=== PATIENT | male | born 1995 | race Caucasian/White ===

== ENCOUNTER 2019-01-31 20:31 | Emergency (ER) | payer OTHER ==
[~2019-01-31] VITALS: Ht 175.3 cm; Wt 100.0 kg
--- NOTE | 2019-01-31 21:17 | REP ---
Clinical: Trauma. Technique: AP, lateral, bilateral oblique views left hand . Findings: The osseous structures and joint spaces are intact and normal. There is no evidence for acute fracture or dislocation. Surrounding soft tissues are unremarkable. No subcutaneous emphysema or radiodense foreign body. Impression: Normal left hand series. No acute fracture or dislocation. Electronically Signed by Elliott Bosch MD 01/31/2019 09:08 P
[2019-01-31] MEDS ORDERED: IBUPROFEN 800 MG TAB PO ONE (23:15)
[2019-01-31] MEDS ORDERED: CEPHALEXIN 500 MG CAP PO ONE (23:15)
[2019-01-31] MEDS ORDERED: IBUP80TA PO (23:20)
[2019-01-31] MEDS ORDERED: KEFL500C17 PO (23:20)
[2019-01-31 23:50] VITALS: BP 145/68
== END 2019-01-31 23:44 | disposition home or self-care (01) ==
LOC: M ED 20:31
DX: M79.642 Pain in left hand (principal)

== ENCOUNTER 2019-05-24 13:11 | Emergency (ER) | payer OTHER ==
[~2019-05-24] VITALS: Ht 175.3 cm; Wt 100.0 kg
[~2019-05-24 13:11] MED LIST: IBUP80TA PO; KEFL500C17 PO
[2019-05-24] MEDS ORDERED: ACET-861 PO (13:16)
--- NOTE | 2019-05-24 14:19 | REP ---
Left ankle four views: There is soft tissue edema laterally. There is no fracture or dislocation. The mortise is symmetric. Mineralization is normal. There are no calcifications or foreign bodies. Impression: Soft tissue edema laterally. No fracture. Electronically Signed by Antonio Lozano MD 05/24/2019 02:11 P
[2019-05-24 14:54] VITALS: BP 141/77
== END 2019-05-24 14:58 | disposition home or self-care (01) ==
LOC: M ED 13:11
DX: S93.401A Sprain of unspecified ligament of right ankle, initial encounter (principal); M25.471 Effusion, right ankle; X50.1XXA Overexertion from prolonged static or awkward postures, initial encounter; Y92.830 Public park as the place of occurrence of the external cause; Y93.89 Activity, other specified; Y99.9 Unspecified external cause status

== ENCOUNTER → 2020-12-24 | Outpatient (CLI) | payer SELFPAY ==
[~2020-12-24] MED LIST changes: +ACET-861 PO
== END ==
LOC: M LABSMTC 12:44
PROVIDERS: ATTEND Pediatrics
DX: Z20.828 Contact with and (suspected) exposure to other viral communicable diseases (principal)

== ENCOUNTER 2021-03-04 16:42 | Emergency (ER) | payer OTHER, SELFPAY ==
[~2021-03-04] VITALS: Ht 175.3 cm; Wt 112.8 kg
[2021-03-04] MEDS ORDERED: PRED20TA PO (17:43)
[2021-03-04 18:10] VITALS: BP 133/69
== END 2021-03-04 18:11 | disposition home or self-care (01) ==
LOC: M ED 16:42
DX: G56.02 Carpal tunnel syndrome, left upper limb (principal)

== ENCOUNTER 2022-09-16 17:21 | Emergency (ER) | payer OTHER ==
[~2022-09-16] VITALS: Ht 175.3 cm; Wt 100.0 kg
[~2022-09-16 17:21] MED LIST changes: +IBUP-1022 PO; +PRED20TA PO; +VITA1CAP25
[2022-09-16] MEDS ORDERED: NS 1,000 ML IV ONE (18:55)
[2022-09-16] MEDS ORDERED: diphenhydrAMINE 50MG/ML VIAL IV STA (18:55)
[2022-09-16] MEDS ORDERED: KETOROLAC 60MG 2ML VIAL IM ONE (18:55)
[2022-09-16] MEDS ORDERED: METOCLOPRAMIDE INJ 10MG/2ML VIAL (J2765 PER 1) IV ONE (18:55)
[2022-09-16 19:59] LABS: BASO # 0.1 10^3/uL (0.0-0.2); BASO % 1.2 % (0.0-1.0); EOS # 0.1 10^3/uL (0.0-0.5); HEMATOCRIT 38.9 % (42.0-52.0); HEMOGLOBIN 13.8 g/dl (13.5-17.5); LYMPH # 1.8 10^3/uL (1.5-5.0); LYMPH % 35.3 % (24.0-44.0); MEAN CORPUSCULAR HEMOGLOBIN 27.9 pg (27.0-33.0); MEAN CORPUSCULAR HGB CONC 35.5 g/dl (32.0-36.5); MEAN CORPUSCULAR VOLUME 78.6 fl (80.0-96.0); MONO # 0.5 10^3/uL (0.0-0.8); MONO % 9.8 % (2.0-8.0); NEUTROPHILS # 2.6 10^3/uL (1.5-8.5); NEUTROPHILS % 51.3 % (36.0-66.0); PLATELET COUNT, AUTOMATED 155 10^3/uL (150-450); RED BLOOD COUNT 4.95 10^6/uL (4.30-6.10)
[2022-09-16 20:25] LABS: ERYTHROCYTE SEDIMENTATION RATE 19 mm/hr (0-15)
[2022-09-16 20:28] LABS: BLOOD UREA NITROGEN 17 MG/DL (9-23); CALCIUM LEVEL 9.8 MG/DL (8.5-10.1); CARBON DIOXIDE LEVEL 24 MMOL/L (20-31); CHLORIDE LEVEL 105 MMOL/L (98-107); CREATININE FOR GFR 1.01 MG/DL (0.70-1.30); GLOMERULAR FILTRATION RATE > 60.0 (>60); GLUCOSE, FASTING 91 MG/DL (60-100); SODIUM LEVEL 140 MMOL/L (136-145)
[2022-09-16 21:03] LABS: RSV AMPLIFICATION NEGATIVE (NEGATIVE)
[2022-09-16] MEDS ORDERED: SUMA25TA3 PO (21:45)
[2022-09-16 22:07] VITALS: BP 130/68
== END 2022-09-16 22:09 | disposition home or self-care (01) ==
LOC: M ED 17:21
DX: R51.9 Headache, unspecified (principal); Z79.899 Other long term (current) drug therapy
CPT/HCPCS: 70450; 80048; 83735; 85025; 85652; 87631; 96361; 96372; 96374; 96375; 99284; J1200; J1885; J2765

== ENCOUNTER 2022-09-23 11:04 | Emergency (ER) | payer OTHER ==
[~2022-09-23] VITALS: Ht 175.3 cm; Wt 104.5 kg
[~2022-09-23 11:04] MED LIST changes: +SUMA25TA3 PO
[2022-09-23] MEDS ORDERED: ONDANSETRON 4MG 2ML VIAL IV ONE (12:35)
[2022-09-23] MEDS ORDERED: ACETAMINOPHEN 500 MG TAB PO ONE (12:35)
[2022-09-23] MEDS ORDERED: NS 1,000 ML IV ONE (12:35)
[2022-09-23 13:38] LABS: BASO # 0.1 10^3/uL (0.0-0.2); BASO % 1.2 % (0.0-1.0); EOS % 0.7 % (0.0-3.0); HEMATOCRIT 35.8 % (42.0-52.0); HEMOGLOBIN 12.4 g/dl (13.5-17.5); LYMPH # 1.8 10^3/uL (1.5-5.0); LYMPH % 43.7 % (24.0-44.0); MEAN CORPUSCULAR HEMOGLOBIN 27.4 pg (27.0-33.0); MEAN CORPUSCULAR HGB CONC 34.6 g/dl (32.0-36.5); MEAN CORPUSCULAR VOLUME 79.2 fl (80.0-96.0); MONO # 0.3 10^3/uL (0.0-0.8); MONO % 6.9 % (2.0-8.0); PLATELET COUNT, AUTOMATED 150 10^3/uL (150-450); RED BLOOD COUNT 4.52 10^6/uL (4.30-6.10); WHITE BLOOD COUNT 4.2 10^3/uL (4.0-10.0)
[2022-09-23] MEDS ORDERED: IBUPROFEN 800 MG TAB PO ONE (14:15)
[2022-09-23 14:23] LABS: ALBUMIN 3.8 G/DL (3.2-5.2); ALT/SGPT 89 U/L (7.0-40); BILIRUBIN,DIRECT 0.5 MG/DL (<0.4); BILIRUBIN,TOTAL 1.2 MG/DL (0.3-1.2); BLOOD UREA NITROGEN 17 MG/DL (9-23); CALCIUM LEVEL 8.6 MG/DL (8.5-10.1); CARBON DIOXIDE LEVEL 25 MMOL/L (20-31); CHLORIDE LEVEL 102 MMOL/L (98-107); CREATININE FOR GFR 1.08 MG/DL (0.70-1.30); GLOMERULAR FILTRATION RATE > 60.0 (>60); GLUCOSE, FASTING 92 MG/DL (60-100); LIPASE 43 U/L (12-53); POTASSIUM SERUM 3.9 MMOL/L (3.5-5.1); SODIUM LEVEL 137 MMOL/L (136-145); TOTAL PROTEIN 6.9 G/DL (5.7-8.2)
[2022-09-23] MEDS ORDERED: ISOVUE-370 76% 100ML VIAL As Ordered ONE (15:45)
[2022-09-23 17:12] VITALS: BP 129/58
[2022-09-23 18:29] LABS: ERYTHROCYTE SEDIMENTATION RATE 22 mm/hr (0-15)
[2022-09-23 19:04] LABS: MONO SCRN NEGATIVE (NEGATIVE)
[2022-09-23 19:44] LABS: HIV 1&2 SCREEN CENTAUR NEGATIVE (NEGATIVE)
== END 2022-09-23 19:54 | disposition home or self-care (01) ==
LOC: M ED 11:04
DX: R50.9 Fever, unspecified (principal); R10.9 Unspecified abdominal pain; R11.0 Nausea; Z79.899 Other long term (current) drug therapy
CPT/HCPCS: 71046; 74177; 80048; 80076; 81000; 83605; 83690; 85025; 85652; 86308; 86618; 87040; 87389; 87486; 87581; 87633; 87798; 87880; 96361; 96374; 99284; J2405